=== PATIENT | female | born 1990 | race Caucasian/White ===

== ENCOUNTER 2020-11-02 09:38 | Emergency (ER) | payer OTHER ==
[~2020-11-02] VITALS: Ht 160 cm; Wt 68.0 kg
[2020-11-02 10:15] VITALS: BP 141/81
--- NOTE | 2020-11-02 10:15 | NUR ---
Patient discharged to home in stable condition. Written and verbal after care instructions given. Patient verbalizes understanding of instruction. Pt ambulatory with a steady gait
== END 2020-11-02 10:16 | disposition home or self-care (01) ==
LOC: ER 09:40
DX: T81.49XA Infection following a procedure, other surgical site, initial encounter (principal)